=== PATIENT | male | born 1960 | race Caucasian/White ===

== ENCOUNTER 2016-04-22 10:06 | Observation (INO) | payer OTHER ==
[2016-04-22] VITALS (10 sets, daily range): BP systolic 138–203; BP diastolic 71–98; PULSE 50–71; RESP 18–20; TEMP 96.8–98; O2SAT 94–97
[~2016-04-22] VITALS: Ht 180.3 cm; Wt 150.0 kg
[2016-04-22] MEDS ORDERED: GEMF600T PO (10:45)
[2016-04-22] MEDS ORDERED: VITA10002 PO (10:45)
[2016-04-22] MEDS ORDERED: OMEG1CAP53 PO (10:45)
[2016-04-22] MEDS ORDERED: ATEN25TA PO (10:45)
[2016-04-22] MEDS ORDERED: MAGN1TAB14 PO (10:45)
[2016-04-22] MEDS ORDERED: ASPI325T PO (10:45)
[2016-04-22] MEDS ORDERED: FAMO20TA2 PO (10:45)
[2016-04-22] MEDS: NITROGLYCERIN 0.4 MG SL 25 TABS/BTL SL SCH ×3 (10:50→10:55)
[2016-04-22 10:52] LABS: AUTOMATED NEUTROPHIL # 2.2 TH/MM3 (1.8-7.7); EOSINOPHIL # 0.2 TH/MM3 (0-0.4); EOSINOPHIL % 4.5 % (0.0-4.0); HEMO FLAGS DIFF FINAL; LYMPH % 28.3 % (9.0-44.0); LYMPHOCYTE # 1.1 TH/MM3 (1.0-4.8); MEAN CELL VOLUME 86.1 FL (80.0-100.0); MEAN CORPUSCULAR HEMOGLOBIN 29.8 PG (27.0-34.0); MEAN CORPUSCULAR HGB CONC 34.6 % (32.0-36.0); MONO % 6.5 % (0.0-8.0); NEUT % 59.7 % (16.0-70.0); PLATELET COUNT 135 TH/MM3 (150-450); RED BLOOD COUNT 5.35 MIL/MM3 (4.50-5.90); RED CELL DISTRIBUTION WIDTH 13.1 % (11.6-17.2); WHITE BLOOD COUNT 3.7 TH/MM3 (4.0-11.0)
[2016-04-22] MEDS ORDERED: BUTA1CAP2 PO (10:55)
[2016-04-22 11:06] LABS: ANION GAP 5 MEQ/L (5-15)
--- NOTE | 2016-04-22 11:07 | RADRPT ---
EXAM DATE/TIME: 04/22/2016 10:32 [facility] COMPARISON: No previous studies available for comparison. INDICATIONS : Chest pains mid sternal radiating into left chest wall. MEDICAL HISTORY : Myocardial infarction. SURGICAL HISTORY : Coronary artery stent. ENCOUNTER: Initial ACUITY: 1 day PAIN SCORE: 9/10 LOCATION: Left chest FINDINGS: A single view of the chest demonstrates the lungs to be symmetrically aerated without evidence of mas s, infiltrate or effusion. The cardiomediastinal contours are unremarkable. Osseous structures are intact. CONCLUSION: No acute disease. Ivan Hamilton MD on April 22, 2016 at 11:05 Board Certified Radiologist. This report was verified electronically.
[2016-04-22 11:11] LABS: APTT (PATIENT) 26.8 SEC (24.3-30.1); PROTHROMBIN TIME - PATIENT 11.1 SEC (9.8-11.6)
[2016-04-22 11:14] LABS: BICARBONATE 28.6 MEQ/L (21.0-32.0); BLOOD UREA NITROGEN 23 MG/DL (7-18); CHLORIDE 105 MEQ/L (98-107); CREATINE KINASE 168 U/L (39-308); GLOMERULAR FILTRATION RATE 58 ML/MIN (>89); POTASSIUM 4.4 MEQ/L (3.5-5.1); SODIUM (NA) 139 MEQ/L (136-145)
--- NOTE | 2016-04-22 11:21 | PD ---
HPI Chief Complaint: Chest Pain Time Seen by Provider: 10:27 Travel History International Travel<30 days: No Contact w/Intl Traveler<30days: No Traveled to known affect area: No History of Present Illness HPI 55-year-old male with history of CAD with previous PCI to the RCA, PDA here with complaint of chest pain and shortness of breath. For the last week patient has had a pressure and discomfort in the right chest that radiates up into the right neck. Some associated shortness of breath. Symptoms are not exertional and he has not found anything that seems to make them better or worse. He is been taken aspirin at home with some mild improvement, and did take this today. he has been taking Tums "like they are candy", thinking that this was GI symptoms but without any improvement.Patient states he was initially most concerned about carotid artery disease as he states that this runs in his family, but has not had any neurologic symptoms. His last stress test was well over 2 years ago. He does not have a local product safety specialist. PFSH Past Medical History Cardiac Catheterization: Yes Cardiovascular Problems: Yes (2013 [place]) High Cholesterol: Yes Chest Pain: Yes Diminished Hearing: No Gastrointestinal Disorders: Yes GERD: Yes Hypertension: Yes Kidney Stones: Yes Respiratory: Yes Myocardial Infarction: Yes Pancreatitis: Yes Sleep Apnea: Yes (wears a C-PAP) Triglycerides - High: Yes Tetanus Vaccination: > 5 Years Past Surgical History Abdominal Surgery: Yes (HERNIA REPAIR X 2) Cardiac Surgery: Yes Cholecystectomy: Yes Coronary Stent: Yes (x3) Tonsillectomy: Yes Social History Alcohol Use: No Tobacco Use: No Substance Use: No Allergies-Medications (Allergen,Severity, Reaction): Coded Allergies: Demerol (Verified Allergy, Unknown, 04/22/16) Morphine (Verified Allergy, Unknown, 04/22/16) Reported Meds & Prescriptions Reported Meds & Active Scripts Active Reported Fioricet-Codeine (Oyvynfkpgn-Jirbnuydoilzo-Anwsymaw-Codeine) 19-328-29-30 Mg Cap 1-2 Cap PO Q6HR PRN Do not exceed 6 capsules/day. Atenolol 25 Mg Tab 25 Mg PO DAILY Vitamin B-12 (Cyanocobalamin) 1,000 Mcg Tab 1,000 Mcg PO DAILY Magnesium 400 Mg Tab 400 Mg PO DAILY Famotidine 20 Mg Tab 20 Mg PO DAILY Aspirin 325 Mg Tab 325 Mg PO DAILY Lovaza (Szpng-9-Xwro Ethyl Esters) 1 Gm Cap 2 Gm PO BID Gemfibrozil 600 Mg Tab 600 Mg PO BIDAC Take 30 minutes prior to breakfast and dinner. Review of Systems Except as stated in HPI: all other systems reviewed are Neg Physical Exam Narrative GENERAL: well-appearing male in no acute distress SKIN: Warm and dry. HEAD: Normocephalic. EYES: No scleral icterus. No injection or drainage. ENT: Mucous membranes pink and moist. NECK: Tsupple CARDIOVASCULAR: Regular rate and rhythm. No murmur appreciated.no reproducible tenderness to palpation of chest wall RESPIRATORY: No accessory muscle use. Clear to auscultation. Breath sounds equal bilaterally. GASTROINTESTINAL: Abdomen soft, non-tender, nondistended. MUSCULOSKELETAL: trace BLE edema NEUROLOGICAL: Awake and alert. Normal speech. PSYCHIATRIC: Appropriate mood and affect; insight and judgment normal. Data Data Last Documented VS Vital Signs Date Time Temp Pulse Resp B/P Pulse Ox O2 Delivery O2 Flow Rate FiO2 04/22/16 10:58 63 20 138/73 04/22/16 10:48 96 Nasal Cannula 2 04/22/16 10:08 97.7 Orders Electrocardiogram (04/22/16 ) Basic Metabolic Panel (Bmp) (04/22/16 10:19) Ckmb (Isoenzyme) Profile (04/22/16 10:19) Complete Blood Count With Diff (04/22/16 10:19) Magnesium (Mg) (04/22/16 10:19) Prothrombin Time / Inr (Pt) (04/22/16 10:19) Act Partial Throm Time (Ptt) (04/22/16 10:19) Troponin I (04/22/16 10:19) Chest, Single Ap (04/22/16 10:19) Ecg Monitoring (04/22/16 10:19) Bilateral Bp Monitoring (04/22/16 10:19) Iv Access Insert/Monitor (04/22/16 10:19) Oximetry (04/22/16 10:19) B-Type Natriuretic Peptide (04/22/16 10:19) Nitroglycerin Sl (Nitrostat Sl) (04/22/16 10:45) CKMB (04/22/16 10:35) CKMB% (04/22/16 10:35) Admit Order (Ed Use Only) (04/22/16 11:22) Labs Laboratory Tests Test 04/22/16 10:35 White Blood Count 3.7 TH/MM3 Red Blood Count 5.35 MIL/MM3 Hemoglobin 15.9 GM/DL Hematocrit 46.0 % Mean Corpuscular Volume 86.1 FL Mean Corpuscular Hemoglobin 29.8 PG Mean Corpuscular Hemoglobin 34.6 % Concent Red Cell Distribution Width 13.1 % Platelet Count 135 TH/MM3 Mean Platelet Volume 7.8 FL Neutrophils (%) (Auto) 59.7 % Lymphocytes (%) (Auto) 28.3 % Monocytes (%) (Auto) 6.5 % Eosinophils (%) (Auto) 4.5 % Basophils (%) (Auto) 1.0 % Neutrophils # (Auto) 2.2 TH/MM3 Lymphocytes # (Auto) 1.1 TH/MM3 Monocytes # (Auto) 0.2 TH/MM3 Eosinophils # (Auto) 0.2 TH/MM3 Basophils # (Auto) 0.0 TH/MM3 CBC Comment DIFF FINAL Differential Comment Prothrombin Time 11.1 SEC Prothromb Time International 1.0 RATIO Ratio Activated Partial 26.8 SEC Thromboplast Time Sodium Level 139 MEQ/L Potassium Level 4.4 MEQ/L Chloride Level 105 MEQ/L Carbon Dioxide Level 28.6 MEQ/L Anion Gap 5 MEQ/L Blood Urea Nitrogen 23 MG/DL Creatinine 1.30 MG/DL Estimat Glomerular Filtration 58 ML/MIN Rate Random Glucose 192 MG/DL Calcium Level 9.2 MG/DL Magnesium Level 2.0 MG/DL Total Creatine Kinase 168 U/L Troponin I LESS THAN 0.02 NG/ML B-Type Natriuretic Peptide 6 PG/ML [facility] Medical Decision Making Medical Screen Exam Complete: Yes Emergency Medical Condition: Yes Medical Record Reviewed: Yes Differential Diagnosis 55-year-old male with history of CAD with previous PCI here with one week of right sided chest pain radiating across the precordium with shortness of breath. Differential includes ACS, CHF, atypical chest pain, GERD and less likely PE or dissection. Narrative Course Patient placed on monitor, IV established and blood obtained. Twelve-lead EKG shows sinus bradycardia, rate 58 with left axis deviation. No notable ST abnormalities, normal intervals. Patient given nitroglycerin with improvement of his chest pain. CBC, BMP, magnesium, BNP, CK-MB, troponin, coags obtained and unremarkable. Portable chest x-ray obtained that by my read shows no acute abnormalities.given patient's cardiac historyWill admit to chest pain center for serial enzymes and provocative testing. Diagnosis Primary Impression: Chest pain Qualified Code: R07.2 - Precordial pain Additional Impression: History of coronary artery disease Admitting Information Admitting Physician Requests: Khadijah Cloud MD Apr 22, 2016 11:21
[2016-04-22] MEDS ORDERED: ACETAMINOPHEN 500 MG CPLT PO ONE (11:30)
[2016-04-22] MEDS ORDERED: ACETAMINOPHEN 500 MG CPLT PO PRN (11:45)
[2016-04-22] MEDS ORDERED: ONDANSETRON HCL 4 MG/2 ML VIAL IV PRN (11:45)
[2016-04-22] MEDS ORDERED: SODIUM CHLORIDE 0.9% FLUSH 5 ML FLUSH IVF PRN (11:45)
[2016-04-22] MEDS ORDERED: NITROGLYCERIN 0.4 MG SL 25 TABS/BTL SL PRN (11:45)
[2016-04-22 14:40] LABS: CREATINE KINASE 163 U/L (39-308)
[2016-04-22 14:56] LABS: CKMB 1.8 NG/ML (0.5-3.6)
[2016-04-22] MEDS ORDERED: ACETAMIN 325 MG/BUTALBITAL 50 MG/CAFFEINE 40 MG TAB PO ONE (17:00)
[2016-04-22 20:26] LABS: CREATINE KINASE 141 U/L (39-308)
[2016-04-22 20:39] LABS: CKMB 1.3 NG/ML (0.5-3.6)
[2016-04-22] MEDS ORDERED: OMEGA ACID ETHYL ESTERS PO SCH (21:00)
[2016-04-22] MEDS: ATENOLOL 25 MG TAB PO SCH (21:02)
[2016-04-22] MEDS: PANTOPRAZOLE SOD 40 MG DELAYED RELEASE TAB PO SCH (21:02)
[2016-04-22] MEDS: SODIUM CHLORIDE 0.9% FLUSH 5 ML FLUSH IVF SCH (21:03)
--- NOTE | 2016-04-22 21:20 | MH ---
cc: SARA DIAMOND MD DATE OF ADMISSION 04/22/2016 64 CHIEF COMPLAINT Chest pain. HISTORY OF PRESENT ILLNESS This is a 55 year old patient with known coronary artery disease and three cardiac stent who presents to the emergency room for further evaluation of chest pain. Onset was last week. Location was his right anterior chest and the right side of his neck described as a pressure. The right anterior chest pain was described as a stabbing pinpoint pain that he still has on occasion. Duration has been constant, has not gone away and has waxed and waned in severity. No associated symptoms. Does have some mild shortness of breath on a regular basis and is unable to tell if it is related to his chest discomfort. No known precipitating factors or relieving factors. Chest pain in the past in 2012 when he had his heart attack, he had severe pain in his left side of the jaw. PAST MEDICAL HISTORY 1. Coronary artery disease. Three stents placed, one in the distal RCA, PDA and RPL. Copies of this have been placed on the chart. 2. High cholesterol 3. C-PAP at night 4. Sleep apnea, 5. Gastroesophageal reflux disease, 6. Hypertension. Noncontributory for any early onset cardiovascular disease. PAST SURGICAL HISTORY 1. Hernia repair 2. Gallbladder 3. Tonsillectomy. SOCIAL HISTORY Father of a brain aneurysm and mother had Alzheimer's, from complications from that. No early onset cardiovascular disease in his siblings. SOCIAL HISTORY He is . Currently he is not working. He is a lifelong nonsmoker. Denies any alcohol or illegal drug use. Does have known hypertension and hyperlipidemia. No known diabetes. PAST CARDIAC TESTING He had a stress test approximately two years ago which was unremarkable. He has not established with a primary care provider or a local erecting engineer. ALLERGIES DEMEROL - SHORTNESS OF BREATH MORPHINE - SEVERE NAUSEA INSTANTANEOUSLY. MEDICATIONS Current medications 1. Mead 3 b.i.d. 2. Atenolol 25 mg daily 3. 600 mg b.i.d. 4. [id number] mg daily, 5. Aspirin 325 daily 6. Fioricet 1-2 tablets q.6 h p.r.n. as needed for headache, 7. Magnesium 400 mg daily 8. Vitamin B12 1000 mg q. day. REVIEW OF SYSTEMS GENERAL: No fatigue, malaise, weakness, fevers, chills, night sweats, change in appetite. HEENT: No headache or visual or hearing changes. No venous congestion, dysphagia. CARDIAC: No chest pain, pressure, palpitations intermittent leg pain or dizziness. Otherwise as stated above. RESPIRATORY: No shortness of breath, cough, wheeze, hemoptysis. Recent upper respiratory infection. ABDOMEN: No bowel changes, diarrhea, constipation, pain distension, blood in stool or dark stool, nausea, vomiting. Reports a good appetite. : No dysuria. EXTREMITIES: No lower leg edema or pain. MUSCULOSKELETAL: No change in range of motion. No discomfort, warmth, redness or swelling of his joints. NEUROLOGIC: No change in memory. No difficulty with balance, motor or sensory deficits, loss of consciousness. PSYCHIATRIC: No anxiety or depression. PHYSICAL EXAMINATION VITAL SIGNS: Temperature 97.7, pulse 60, respiratory 18, blood pressure on admission 180/88, 95% on room air. Last documented blood pressure 146/71. GENERAL: He is alert, well-nourished, well-developed in no acute distress. obese pleasant male HEAD: Normocephalic, atraumatic. EYES: Sclerae clear. Conjunctivae without injection. Pupils are equal and round. ENT: Mucous membranes are pink and moist. NECK: Supple. No masses. Trachea is midline. CARDIOVASCULAR: Shows regular rate and rhythm without murmur or gallop. No JVD. S1-S2. No S3. No S4. No carotid bruits. RESPIRATORY: Clear lungs throughout bilateral with no crackles, wheeze or rhonchi. He has nonlabored symmetrical chest rise. ABDOMEN: Soft, obese, nontender, nondistended. No masses. Positive bowel tones. EXTREMITIES: Pulses +2 x4 with just a trace dependent pedal edema. MUSCULOSKELETAL: Normal tone x4. He is nontender. No obvious deformities. NEUROLOGIC: Cranial nerves II-XII grossly intact. Motor strength 5/5. PSYCHIATRIC: He is alert and oriented x3, has a pleasant affect appropriate to mood, insight and judgment. LABORATORY CBC has a WBC of 3.7 and platelets of 135 otherwise unremarkable. Chemistry has an estimated GFR of 58, random glucose 192 otherwise unremarkable. Two sets of troponins are negative. Third set is pending. Coagulation is unremarkable. IMAGING STUDIES Chest x-ray read by the radiologist has conclusion of no acute disease. CARDIOLOGY STUDIES Three EKGs show a normal sinus bradycardic rhythm with a left axis deviation with no ST or T segment changes. ASSESSMENT/PLAN 1. Chest pain. The patient has been admitted to the chest pain center. He will undergo three sets of EKGs and cardiac enzymes. He was seen and evaluated by Dr. Villatoro. It has been discussed with the patient if he is ruled out with three sets of EKGs and cardiac enzymes he will have a chemical stress test in the morning. This has been discussed with both the patient and his , who is at bedside, and they are both agreeable to this plan of care. Naturally, if his stress test is negative he will be discharged home. He has been strongly encouraged to find and establish with a local erecting engineer now that he is living in the area. 2. Hypertension. We will continue to monitor and reorder his atenolol. 3. Gastroesophageal reflux disease. Would change his Pepcid to Protonix 40 mg daily. Dictated by BENNY Cornejo MD RAHEEL Villanueva/ /6:56 PM /8:50 AM
[2016-04-23 00:03] VITALS: BP 140/79; PULSE 48
[2016-04-23 00:32] VITALS: PULSE 50
[2016-04-23 04:12] VITALS: BP 139/91; PULSE 51; RESP 20; TEMP 97.5; O2SAT 95
[2016-04-23 04:34] VITALS: PULSE 50
[2016-04-23] MEDS: GEMFIBROZIL 600 MG TAB PO SCH ×2 (06:16→12:40)
[2016-04-23] MEDS ORDERED: RESP: ALBUTEROL 2.5 MG/3 ML NEB (PRN) NEB (07:30)
[2016-04-23 07:56] VITALS: BP 137/83; PULSE 53; RESP 18; TEMP 98.1; O2SAT 94
[2016-04-23] MEDS: ATENOLOL 25 MG TAB PO SCH (09:00)
[2016-04-23] MEDS ORDERED: MAGNESIUM OXIDE 400 MG TAB PO SCH (09:00)
[2016-04-23] MEDS ORDERED: ASPIRIN 325 MG TAB PO SCH (09:00)
[2016-04-23] MEDS ORDERED: ATENOLOL 25 MG TAB PO SCH (09:00)
[2016-04-23] MEDS ORDERED: CYANOCOBALAMIN 1,000 MCG TAB PO SCH (09:00)
[2016-04-23] MEDS ORDERED: FAMOTIDINE 20 MG TAB PO SCH (09:00)
[2016-04-23] MEDS ORDERED: REGADENOSON INJ 0.4 MG/5 ML SYR ONE (11:18)
--- NOTE | 2016-04-23 11:40 | EKG ---
Date Performed: 04/22/2016 Time Performed: 13:59:14 PTAGE: 55 years EKG: SINUS BRADYCARDIA MARKED LEFT AXIS DEVIATION INFERIOR LATERAL NONSPECIFIC T-WAVE CHANGES PO OR PRECORDIAL R-WAVE PROGRESSION ABNORMAL ECG PREVIOUS TRACING : 04/22/2016 10.24 DOCTOR: Arsalan Watson Interpretating Date/Time 04/23/2016 11:40:01
--- NOTE | 2016-04-23 11:42 | EKG ---
Date Performed: 04/22/2016 Time Performed: 16:08:54 PTAGE: 55 years EKG: SINUS BRADYCARDIA MARKED LEFT AXIS DEVIATION MODERATE INTRAVENTRICULAR CONDUCTION DELAY NON SPECIFIC T-WAVE ABNORMALITY ABNORMAL ECG PREVIOUS TRACING : 04/22/2016 13.59 DOCTOR: Arsalan Watson Interpretating Date/Time 04/23/2016 11:41:33
--- NOTE | 2016-04-23 11:44 | EKG ---
Date Performed: 04/22/2016 Time Performed: 10:24:55 PTAGE: 55 years EKG: SINUS BRADYCARDIA MARKED LEFT AXIS DEVIATION MODERATE INTRAVENTRICULAR CONDUCTION DELAY ABN ORMAL ECG NO PREVIOUS TRACING DOCTOR: Arsalan Watson Interpretating Date/Time 04/23/2016 11:43:38
[2016-04-23] MEDS: PANTOPRAZOLE SOD 40 MG DELAYED RELEASE TAB PO SCH (12:41)
[2016-04-23] MEDS: SODIUM CHLORIDE 0.9% FLUSH 5 ML FLUSH IVF SCH (12:41)
--- NOTE | 2016-04-23 13:30 | RADRPT ---
EXAM DATE/TIME: 04/23/2016 10:33 [facility] COMPARISON: No previous studies available for comparison. INDICATIONS : Right chest pain radiating to right neck with mild shortness of breath. Angina. DOSE: 34.5 mCi Tc99m Myoview at stress. 10.9 mCi Tc99m Myoview at rest. 0.4 mg Lexiscan STRESS SYMPTOMS: Shortness of breath and stomach tightness. EJECTION FRACTION: 45% MEDICAL HISTORY : Myocardial infarction. Hypercholesterolemia. Hypertension. Hyperlipidemia, coronary artery disease, g astroesophageal reflux disease and pancreatitis. SURGICAL HISTORY : Tonsillectomy. Coronary artery stent. Hernia repair. ENCOUNTER: Initial ACUITY: 1 week PAIN SCALE: 4/10 LOCATION: Right chest TECHNIQUE: The patient underwent pharmacologic stress with infusion of prescribed dose. Continuous ECG tracing was monitored during stress. Gated SPECT imaging was performed after stress and conventional SPECT i maging was performed at rest. The examination was performed on a SPECT/CT scanner, both attenuation and non-corrected datasets were reviewed. FINDINGS: DISTRIBUTION: The maximum perfused segment at stress is in the anterolateral wall. PERFUSION STUDY: The pattern of perfusion at stress is within normal limits except for decreased perfusion to the dist al posterior wall. GATED STUDY: There is intact wall motion and thickening without hypokinetic or dyskinetic segments. CONCLUSION: Decreased ejection fraction of 45%. Persistent defect posterior wall suggest RCA infarct. RISK CATEGORY: Intermediate (1-3% Annual Mortality Rate) Bret Llanes MD on April 23, 2016 at 13:26 Board Certified Radiologist. This report was verified electronically.
--- NOTE | 2016-04-23 13:49 | TR ---
Date Performed: 04/23/2016 Time Performed: 11:18:15 DOCTOR: Arsalan Watson DRUG LIST: CLINICAL HISTORY: CHEST PAIN REASON FOR TEST: CHEST PAIN REASON FOR ENDING: OBSERVATION: CONCLUSION: Lexiscan stress test was performed under standard four minute protocol. Radionuclide was injected one minute prior to ending the test. Developed stomach pressure and shortness of breath . No electrocardiographic abnormalities were present to suggest ischemia. Recovery was quick and unev entful with resolution of symptoms. Nuclear imaging and interpretation are pending. COMMENTS:
--- NOTE | 2016-04-23 14:10 | HHI.DCPOC ---
Discharge Care Plan Diagnosis: (1) Atypical chest pain (2) Hx of coronary artery disease Goals to Promote Your Health * To prevent worsening of your condition and complications * To maintain your health at the optimal level Directions to Meet Your Goals Take your medications as prescribed Follow your dietary instruction Follow activity as directed Keep your appointments as scheduled Take your immunizations and boosters as scheduled If your symptoms worsen call your PCP, if no PCP go to Urgent Care Center or Emergency Room Smoking is Dangerous to Your Health. Avoid second hand smoke Call the 24-hour hour crisis hotline for domestic abuse at [facility] Apr 23, 2016 14:10
--- NOTE | 2016-04-23 14:19 | HHI.DCPOC ---
Discharge Care Plan Diagnosis: (1) Hypertension (2) Atypical chest pain (3) Hx of coronary artery disease Goals to Promote Your Health * To prevent worsening of your condition and complications * To maintain your health at the optimal level Directions to Meet Your Goals Take your medications as prescribed Follow your dietary instruction Follow activity as directed Keep your appointments as scheduled Take your immunizations and boosters as scheduled If your symptoms worsen call your PCP, if no PCP go to Urgent Care Center or Emergency Room Smoking is Dangerous to Your Health. Avoid second hand smoke Call the 24-hour hour crisis hotline for domestic abuse at [facility] Apr 23, 2016 14:19
[2016-04-23] MEDS ORDERED: PROT40TA PO (14:31)
[2016-04-23] MEDS ORDERED: LISI10TA3 PO (14:31)
[2016-04-23] MEDS ORDERED: LOSA50TA PO (14:50)
[2016-04-23 15:48] VITALS: BP 147/76; PULSE 53; RESP 16; TEMP 97.6; O2SAT 97
[2016-04-24 11:25] LABS: HEMOGLOBIN A1a 0.8 %; HEMOGLOBIN A1b 1.8 %; HEMOGLOBIN Ao 86.4 %; HEMOGLOBIN LA1C 1.4 %; HEMOGLOBIN P3 3.5 %
[2016-06-17] MEDS ORDERED: NITR0.4S SL (15:13)
[2016-06-17] MEDS ORDERED: ENDO7.5T10 PO (15:13)
[2016-06-17] MEDS ORDERED: NAPR220T95 PO (15:13)
[2016-06-17] MEDS ORDERED: PROT40TA PO (15:35)
[2016-06-17] MEDS ORDERED: LOSA50TA PO (15:35)
[2016-07-29] MEDS ORDERED: GEMF600T PO (11:05)
[2016-07-29] MEDS ORDERED: ATEN25TA PO (11:05)
[2016-07-29] MEDS ORDERED: LOSA50TA PO (11:07)
[2016-07-29] MEDS ORDERED: PROT40TA PO (11:07)
== END 2016-04-23 16:26 | disposition home or self-care (01) ==
LOC: EDBD → NEPE 10:06 → NEDA 11:23 → NEPGCP 14:10
PROVIDERS: ADMIT Internal Medicine Interventional Cardiology; ATTEND Internal Medicine Interventional Cardiology
DX: I25.10 Atherosclerotic heart disease of native coronary artery without angina pectoris (principal); I10 Essential (primary) hypertension; E78.00 Pure hypercholesterolemia, unspecified; G47.30 Sleep apnea, unspecified; K21.9 Gastro-esophageal reflux disease without esophagitis; R06.02 Shortness of breath; I25.2 Old myocardial infarction; Z95.5 Presence of coronary angioplasty implant and graft
CPT/HCPCS: 71010; 78452; 80048; 82550; 82552; 82948; 83036; 83735; 83880; 84484; 85025; 85610; 85730; 93005; 93017; 99285; A9502; G0378; J2785

== ENCOUNTER → 2016-07-18 | Outpatient (CLI) | payer OTHER ==
[~2016-07-18] MED LIST: ASPI325T PO; ATEN25TA PO; BUTA1CAP2 PO; ENDO7.5T10 PO; GEMF600T PO; LOSA50TA PO; MAGN1TAB14 PO; NAPR220T95 PO; NITR0.4S SL; OMEG1CAP53 PO; PROT40TA PO; VITA10002 PO
[2016-07-18 11:08] LABS: HDL CHOLESTEROL 29.3 MG/DL (40.0-60.0)
== END ==
LOC: CLAB 09:55
PROVIDERS: ATTEND Nurse Practitioner Family
DX: E78.00 Pure hypercholesterolemia, unspecified (principal); E66.9 Obesity, unspecified
CPT/HCPCS: 36415; 80061; 84443

== ENCOUNTER → 2016-10-21 | Outpatient (CLI) | payer OTHER ==
[~2016-10-21] MED LIST changes: +ALEV220T14 PO
[2016-10-21 11:19] LABS: ANION GAP 9 MEQ/L (5-15); AST (GOT) 25 U/L (15-37); BICARBONATE 25.3 MEQ/L (21.0-32.0); BLOOD UREA NITROGEN 18 MG/DL (7-18); CHLORIDE 106 MEQ/L (98-107); GLOMERULAR FILTRATION RATE 67 ML/MIN (>89); GLUCOSE,FASTING 115 MG/DL (74-99); POTASSIUM 4.1 MEQ/L (3.5-5.1); SODIUM (NA) 140 MEQ/L (136-145)
[2016-10-21 11:20] LABS: ALT (GPT) 66 U/L (12-78)
[2016-10-21 11:23] LABS: ALKALINE PHOSPHATASE 80 U/L (45-117); HDL CHOLESTEROL 28.4 MG/DL (40.0-60.0); TOTAL BILIRUBIN ADULT 0.5 MG/DL (0.2-1.0)
== END ==
LOC: CLAB 10:25
PROVIDERS: ATTEND Nurse Practitioner Family
DX: E78.5 Hyperlipidemia, unspecified (principal); I10 Essential (primary) hypertension
CPT/HCPCS: 36415; 80053; 80061

== ENCOUNTER → 2016-11-02 | Outpatient (CLI) | payer OTHER ==
[~2016-11-02] MED LIST changes: +AZIT250T3 PO; +FURO1TAB62 PO; -NAPR220T95 PO
--- NOTE | 2016-11-02 18:16 | RADRPT ---
EXAM DATE/TIME: 11/02/2016 10:03 [facility] COMPARISON: No previous studies available for comparison. INDICATIONS : Cough. MEDICAL HISTORY : Hypercholesterolemia. Myocardial infarction. Pancreatitis. CAD. Hypertension. Sleep apnea. GERD. Renal calculi. SURGICAL HISTORY : Tonsillectomy. Cholecystectomy. Hernia repair. Cardiac catheterization w/ stent placement. ENCOUNTER: Initial ACUITY: 4 - 6 days PAIN SCORE: 0/10 LOCATION: chest FINDINGS: PA and lateral views of the chest demonstrate minimal bibasilar densities. Heart normal in size. Oss eous structures are intact. CONCLUSION: Minimal bibasilar infiltrates. Tye Mondragon MD on November 02, 2016 at 18:14 Board Certified Radiologist. This report was verified electronically.
--- NOTE | 2016-11-02 20:12 | EKG ---
Date Performed: 11/02/2016 Time Performed: 10:28:26 PTAGE: 56 years EKG: Sinus bradycardia. Leftward axis rSr'(V1) - probable normal variant Inferior T wave changes are nonspecific Borderline ECG PREVIOUS TRACING : 04/22/2016 16.08 Compared to prior tracing no significant change DOCTOR: Amanda Alvarado Interpretating Date/Time 11/02/2016 20:09:58
--- NOTE | 2016-11-04 14:27 | HM ---
Date Performed: 11/02/2016 Time Performed: 10:44:00 HOOKUP DATE: 11/02/16 10:44:00 AM Wed ANALYSIS START TIME: 11/02/2016 10:49:00 AM ANALYSIS END TIME: 11/03/2016 10:52:59 AM PATIENT AGE: 56 PATIENT HEIGHT PATIENT WEIGHT DRUG LIST: OUT PATIENT PATIENT DIAGNOSIS: R00.2 PALPITATIONS TEST NARRATIVE: The patient's average heart rate was 54 BPM. No episodes of tachycardia wer e noted. Heart rates less than 50 BPM were noted 51% of the time. No pauses exceeding 2.0 second s were noted. 540 ventricular ectopics, which represented 1% of the total beat count, were noted. The highest ventricular ectopic frequency occurred from 12:00 AM to 01:00 AM Coco. During this time 80 VE(s) occurred. Ventricular ectopics were observed as 540 isolated beat(s) only. No couplets or runs were noted. 1 supraventricular ectopics, which represented < 1% of the total beat count, we re noted. The highest supraventricular ectopic frequency occurred from 11:00 PM to 12:00 AM Coco. Du ring this time 1 SVE(s) occurred. No episodes of ST depression (defined as -1.0 mm or more) were noted in channel 1. No episodes of ST depression (defined as -1.0 mm or more) were noted in channel 2. No episodes of ST depression (defined as -1.0 mm or more) were noted in channel 3. TEST INTERPRETATION: No diary is available. The underlying rhythm is Sinus rhythm with average rate 54 bpm and range of 39 to 86 bpm. No significant pauses are present. Rare isolated premature atrial and ventricular contractions are seen. There appeared to be a short run of an ectop ic atrial rhythm. Signed by : Arian Graham
== END ==
LOC: HRAD 09:46
PROVIDERS: ATTEND Nurse Practitioner Family
DX: R05 Cough (principal); R00.2 Palpitations
CPT/HCPCS: 71020; 93005; 93225; 93226

== ENCOUNTER → 2016-11-04 | Outpatient (CLI) | payer OTHER | LOC: CLAB 08:36 | PROVIDERS: ATTEND Nurse Practitioner Family | DX: R00.2 Palpitations (principal) | CPT/HCPCS: 36415; 84443 ==

== ENCOUNTER → 2016-11-08 | Outpatient (CLI) | payer OTHER ==
--- NOTE | 2016-11-08 11:47 | ECHRPT ---
Indication: Pleural effusion, not elsewhere classified CONCLUSIONS Normal left ventricular size. Wall thickness is normal. The left ventricular systolic function is low normal with an estimated ejection fraction in the rang e of 50- 55%. No regional wall motion abnormalities are present. No pericardial effusion. No pleural effusion. BP: / HR: Rhythm: Sinus MEASUREMENTS (Male / Female) Normal Values Technical Quality:Good 2D ECHO LV Diastolic Diameter PLAX 6.5 cm 4.2 - 5.9 / 3.9 - 5.3 cm LV Systolic Diameter PLAX 4.9 cm IVS Diastolic Thickness 1.3 cm 0.6 - 1.0 / 0.6 - 0.9 cm LVPW Diastolic Thickness 1.0 cm 0.6 - 1.0 / 0.6 - 0.9 cm LV Relative Wall Thickness 0.4 RV Internal Dim ED PLAX 2.3 cm LA Systolic Diameter LX 4.3 cm 3.0 - 4.0 / 2.7 - 3.8 cm DOPPLER TR Peak Velocity 270.0 cm/s TR Peak Gradient 29.2 mmHg FINDINGS LEFT VENTRICLE Normal left ventricular size. Wall thickness is normal. The left ventricular systolic function is low normal with an estimated ejection fraction in the rang e of 50- 55%. No regional wall motion abnormalities are present. RIGHT VENTRICLE Normal right ventricular size and systolic function. LEFT ATRIUM The left atrial size is normal. RIGHT ATRIUM The right atrial size is normal. ATRIAL SEPTUM Normal atrial septal thickness without atrial level shunting by limited color doppler interrogation. AORTA The aortic root and proximal ascending aorta are normal in size on limited imaging. MITRAL VALVE Structurally normal mitral valve. No mitral valve stenosis or regurgitation. AORTIC VALVE Trileaflet aortic valve. No aortic valve stenosis or regurgitation. TRICUSPID VALVE Structurally normal tricuspid valve. No tricuspid valve stenosis or regurgitation. PULMONARY VALVE The pulmonary valve is not well visualized. VESSELS The inferior vena cava is normal in size. PERICARDIUM No pericardial effusion. No pleural effusion. Tara Ken MD, FACC (Electronically Signed) Final Date:08 November 2016 11:46
== END ==
LOC: HECH 08:26
PROVIDERS: ATTEND Family Medicine
DX: R05 Cough (principal); J90 Pleural effusion, not elsewhere classified
CPT/HCPCS: 93306

== ENCOUNTER 2017-08-03 09:39 | Emergency (ER) | payer OTHER ==
[~2017-08-03 09:39] MED LIST changes: +ASPI-183 PO; -ASPI325T PO; -ATEN25TA PO; -AZIT250T3 PO; -FURO1TAB62 PO; -MAGN1TAB14 PO; +MAGN400T3 PO; +METO25TA3 PO
[2017-08-03 09:53] VITALS: BP 167/83; PULSE 73; RESP 20; TEMP 98; O2SAT 96
--- NOTE | 2017-08-03 10:59 | RADRPT ---
EXAM DATE/TIME: 08/03/2017 10:15 [facility] COMPARISON: No previous studies available for comparison. INDICATIONS : Right suprapatellar knee pain after stepping down. MEDICAL HISTORY : Hypercholesterolemia. Myocardial infarction. Pancreatitis. CAD. Hypertension. Sleep apnea. GERD. Renal calculi. SURGICAL HISTORY : Tonsillectomy. Cholecystectomy. Hernia repair. Cardiac catheterization w/ stent placement. ENCOUNTER: Initial ACUITY: 2 days PAIN SCORE: 8/10 LOCATION: Right knee FINDINGS: Four view examination of the right knee demonstrates no evidence of dislocation. Questionable hairlin e fracture involving the posterior lateral tibial plateau. Bony mineralization is normal. The articu lar surfaces are intact. The suprapatellar soft tissues have a normal configuration. CONCLUSION: Questionnaire one fracture of the posterior tibial plateau. No significant joint effusion. Bret Llanes MD on August 03, 2017 at 10:56 Board Certified Radiologist. This report was verified electronically.
[2017-08-03] MEDS ORDERED: ACETAMINOPHEN/HYDROcodone 325 MG/7.5 MG TAB PO ONE (11:00)
[2017-08-03] MEDS ORDERED: METHOCARBAMOL 500 MG TAB PO ONE (11:00)
[2017-08-03] MEDS ORDERED: ONDANSETRON ODT 4 MG TAB PO ONE (11:00)
[2017-08-03] MEDS ORDERED: ZOFR4TAB3 SL (11:03)
[2017-08-03] MEDS ORDERED: ROBA500T PO (11:03)
[2017-08-03] MEDS ORDERED: NORC5TAB PO (11:03)
--- NOTE | 2017-08-03 11:04 | PD ---
HPI Chief Complaint: Injury Time Seen by Provider: 10:12 Travel History International Travel<30 days: No Contact w/Intl Traveler<30days: No Traveled to known affect area: No History of Present Illness HPI 57-year-old male presents to the emergency department with complaint of right knee pain to the anterior aspect 2 days after stepping down a step and twisting his knee. Denies paresthesias, loss of sensation to the affected extremity. Reports active decreased range of motion secondary to pain. Denies fever, vomiting. Rates pain 01/17. Has been taking nabumetone for pain and it is not doing anything for his symptoms. Pain is worse with walking, straightening his leg, palpation to the area. No known relieving factors. Pain is constant. Has been using a cane for support also. Primary care provider is Dr. Rivera. Allergies to Demerol and morphine sulfate. History of NV, hypertension, hypertriglyceridemia. Has no other medical complaints. No other modifying factors or associated signs and symptoms. PFSH Past Medical History Heart Rhythm Problems: No Cardiac Catheterization: Yes Cardiovascular Problems: Yes (2012 NV) High Cholesterol: Yes Chest Pain: Yes Congestive Heart Failure: No Diabetes: No Diminished Hearing: No Gastrointestinal Disorders: Yes GERD: Yes Hypertension: Yes Kidney Stones: Yes Respiratory: Yes Myocardial Infarction: Yes Pancreatitis: Yes Sleep Apnea: Yes (wears a C-PAP) Triglycerides - High: Yes Past Surgical History Abdominal Surgery: Yes (HERNIA REPAIR X 2) Cardiac Surgery: Yes Cholecystectomy: Yes Coronary Artery Bypass Graft: No Coronary Stent: Yes (x3) Tonsillectomy: Yes Social History Alcohol Use: No Tobacco Use: No Substance Use: No Allergies-Medications (Allergen,Severity, Reaction): Coded Allergies: meperidine (Unverified Allergy, Unknown, 08/03/17) morphine (Unverified Allergy, Unknown, 08/03/17) Reported Meds & Prescriptions Reported Meds & Active Scripts Active Robaxin (Methocarbamol) 500 Mg Tab 500 Mg PO QID PRN Zofran Odt (Ondansetron Odt) 4 Mg Tab 4 Mg SL Q8HR PRN Metoprolol Tartrate 25 Mg Tab 12.5 Mg PO DAILY Losartan (Losartan Potassium) 50 Mg Tab 50 Mg PO DAILY Protonix (Pantoprazole Sodium) 40 Mg Tab 40 Mg PO DAILY Gemfibrozil 600 Mg Tab 600 Mg PO BIDAC Take 30 minutes prior to breakfast and dinner. Lovaza (Dufvx-2-Myzh Ethyl Esters) 1 Gm Cap 2 Gm PO BID Reported Aleve Arthritis (Naproxen Sodium) 220 Mg Tab 220 Mg PO BID Nitrostat SL (Nitroglycerin) 0.4 Mg Subl 0.4 Mg SL DIRECTED PRN 1 tablet under the tongue as needed for chest pain. Repeat every 5 minutes for a total of 3 DOSES or call 911 if NO relief. Endocet (Oxycodone-Acetaminophen) 7.5-325 mg Tab 1 Tab PO Q6H PRN Fioricet-Codeine (Pgtexxefnq-Mbblxmodtyivl-Ukkezpuy-Codeine) [id number] Mg Cap 1-2 Cap PO Q6HR PRN Do not exceed 6 capsules/day. Vitamin B-12 (Cyanocobalamin) 1,000 Mcg Tab 1,000 Mcg PO DAILY Magnesium 400 Mg Tab 400 Mg PO DAILY Aspirin 325 Mg Tab 325 Mg PO DAILY Review of Systems Except as stated in HPI: all other systems reviewed are Neg Physical Exam Narrative GENERAL: Well-nourished, well-developed male patient, in no acute distress; afebrile, nontoxic-appearing SKIN: Warm and dry. HEAD: Atraumatic. Normocephalic. EYES: Pupils equal and round. No scleral icterus. No injection or drainage. ENT: Mucosa pink and moist. Airway patent. NECK: Trachea midline. CARDIOVASCULAR: Regular rate. RESPIRATORY: No accessory muscle use. GASTROINTESTINAL: Obese MUSCULOSKELETAL: Right knee minimally edematous, nonerythematous, and without ecchymosis; full range of motion and flexion to 90; point tenderness to the patellar aspect, just above and below the patella; joint stable with negative drawer test; no obvious deformity. Right lower extremity is supple and non- tense with 2+ pedal pulse and sensory intact and without erythema or edema. Ambulatory in room with a limp to the right lower extremity. NEUROLOGICAL: Awake and alert. Oriented 3. No obvious cranial nerve deficits. Motor grossly within normal limits. Normal speech. PSYCHIATRIC: Appropriate mood and affect; insight and judgment normal. Data Data Last Documented VS Vital Signs Date Time Temp Pulse Resp B/P (MAP) Pulse Ox O2 Delivery O2 Flow Rate FiO2 08/03/17 09:53 98.0 73 20 167/83 (111) 96 Orders Orders Knee, Complete (4vws) (08/03/17 09:58) Canvas Knee Splint (Cks) (08/03/17 ) Crutches (08/03/17 10:54) Acetamin-Hydrocod 325-7.5 Mg ([place] 7.5 (08/03/17 11:00) Ondansetron Odt (Zofran Odt) (08/03/17 11:00) Methocarbamol (Robaxin) (08/03/17 11:00) Acetamin-Hydrocod 325-5 Mg ([place] 5-325 (08/03/17 11:15) Ct Knee W/O Contrast (08/03/17 ) Immobilizer Knee 20 Inch (08/03/17 ) MDM Medical Decision Making Medical Screen Exam Complete: Yes Emergency Medical Condition: Yes Medical Record Reviewed: Yes Differential Diagnosis Knee sprain, ACL tear, meniscal tear, patella displacement, knee fracture Narrative Course 57-year-old male with right knee injury. Patient is in a significant amount of pain. Patient says morphine and Demerol make him vomit when he takes them. I will give him Zofran with the Lortab to avoid the adverse reaction. Lortab, Zofran, Robaxin, right knee x-ray ordered. 1110: Right knee x-ray concluded: Knee X-Ray 08/03/17 0958 Signed Impressions: Service Date/Time: July 10:15 - CONCLUSION: Questionnaire one fracture of the posterior tibial plateau. No significant joint effusion. Bret Llanes MD I discussed x-ray findings with Dr. Braden and she patient can follow-up outpatient and agrees with my plan of care. On discussion with the patient he does not have insurance and a mandatory outpatient referral will be needed. With this information I will go ahead and do a CT scan to verify the tibial plateau fracture. CT right knee ordered. 1226: Right knee CT scan concludes: Lower Extremity CT 08/03/17 0000 Signed Impressions: Service Date/Time: July 11:46 - CONCLUSION: Normal examination. There is a lucency on the plain film does not correspond to fracture, but is related to a small osteophyte Bret Llanes MD Discussed CT findings with the patient and provided a copy of the x-ray and CT report for the patient. Canvas knee splint, crutches provided for support. Mandatory outpatient referral ordered for outpatient follow-up. Instructed patient to follow-up with orthopedic surgeon. Lortab, Robaxin, Zofran prescribed for home. Instructed patient to follow up with primary care provider. Patient verbalizes understanding and agreement with treatment plan. Patient is medically cleared and stable for discharge. Discussed reasons to return to the emergency department. Patient agrees with treatment plan. The patients vital signs are stable and the patient is stable for outpatient follow- up and treatment. Patient discharged home, stable and in no acute distress. Diagnosis Primary Impression: Right knee injury Qualified Codes: S89.91XA - Unspecified injury of right lower leg, initial encounter Referrals: [facility] Orthopaedic Surgeon Primary Care Physician Patient Instructions: Crutch Instructions (ED), General Instructions, Knee Sprain (ED), Leg Fracture (ED) Additional Instructions: Tylenol or ibuprofen as needed and as directed to reduce pain and inflammation Rest, ice, compress, and elevate extremity to decrease pain and inflammation Knee brace for support Crutches for support Avoid aggravating activity; increase activity as tolerated Follow-up with primary care provider Follow-up with orthopedics Return to the emergency department immediately with worsening symptoms Med/Other Pt SpecificInfo: Prescription(s) given Scripts Methocarbamol (Robaxin) 500 Mg Tab 500 MG PO QID Y for MUSCLE SPASM, #30 TAB 0 Refills Prov: Radha Oseguera 08/03/17 Ondansetron Odt (Zofran Odt) 4 Mg Tab 4 MG SL Q8HR Y for Nausea/Vomiting, #6 TAB 0 Refills Prov: Radha Oseguera 08/03/17 Disposition: 01 DISCHARGE HOME Condition: Stable Radha Oseguera Aug 03, 2017 11:04
[2017-08-03] MEDS ORDERED: ACETAMINOPHEN/HYDROcodone 325 MG/5 MG TAB PO ONE (11:15)
--- NOTE | 2017-08-03 12:08 | RADRPT ---
EXAM DATE/TIME: 08/03/2017 11:46 [facility] COMPARISON: KNEE RIGHT COMPLETE (4VWS), August 03, 2017, 10:15. INDICATIONS : Right knee pain to the anterior aspect x2 days. RADIATION DOSE: 32.78 CTDIvol (mGy) MEDICAL HISTORY : Cardiovascular disease. Hypertension. SURGICAL HISTORY : None. ENCOUNTER: Initial ACUITY: 2 days PAIN SCALE: 4/10 LOCATION: Right Knee TECHNIQUE: Volumetric scanning of the knee was performed. Using automated exposure control and adjustment of th e mA and/or kV according to patient size, radiation dose was kept as low as reasonably achievable to obtain optimal diagnostic quality images. DICOM format image data is available electronically for re view and comparison. FINDINGS: BONES: No evidence of fracture. Alignment is within normal limits. JOINTS: No evidence of joint narrowing or effusion. SOFT TISSUES: Muscles, tendons and neurovascular structures are grossly unremarkable. No evidence of mass, organize d fluid collection, or foreign body. CONCLUSION: Normal examination. There is a lucency on the plain film does not correspond to fracture, but is rela dunia to a small osteophyte Bret Llanes MD on August 03, 2017 at 12:05 Board Certified Radiologist. This report was verified electronically.
[2017-08-03 12:34] VITALS: RESP 20
== END 2017-08-03 12:34 | disposition home or self-care (01) ==
LOC: NEPK 09:39
DX: S89.91XA Unspecified injury of right lower leg, initial encounter (principal); I25.2 Old myocardial infarction; I10 Essential (primary) hypertension; E78.00 Pure hypercholesterolemia, unspecified; K21.9 Gastro-esophageal reflux disease without esophagitis; G47.30 Sleep apnea, unspecified; W10.9XXA Fall (on) (from) unspecified stairs and steps, initial encounter; Z87.19 Personal history of other diseases of the digestive system; Z87.442 Personal history of urinary calculi
CPT/HCPCS: 73564; 73700; 99284; E0113; L1830